=== PATIENT | male | born 1980 | race African-American/Black ===

== ENCOUNTER 2021-10-05 12:28 | Emergency (ER) | payer OTHER, SELFPAY | END 2021-10-05 14:00 | disposition home or self-care (01) | LOC: ERS 12:28 | DX: S16.1XXA Strain of muscle, fascia and tendon at neck level, initial encounter (principal); S09.90XA Unspecified injury of head, initial encounter; W22.8XXA Striking against or struck by other objects, initial encounter; F17.210 Nicotine dependence, cigarettes, uncomplicated | CPT/HCPCS: 70450; 72125; 72128 ==